=== PATIENT | male | born 1995 | race Hispanic/Latino ===

== ENCOUNTER 2018-09-09 21:16 | Emergency (ER) | payer OTHER ==
[2018-09-09] MEDS ORDERED: IBUPROFEN 600 MG TABLET ONE (21:54)
[2018-09-09] MEDS ORDERED: ONDANSETRON ODT 4 MG TAB ONE (21:54)
[2018-09-09 23:20] LABS: APPEARANCE,URINE Cloudy (CLEAR); BILIRUBIN,URINE Negative (NEGATIVE); COLOR,URINE Yellow (YELLOW); GLUCOSE, URINE (UA) Negative (NEGATIVE); KETONES,URINE Trace mg/dL (NEGATIVE); LEUKOCYTE ESTERASE ,URINE Negative (NEGATIVE); NITRATE,URINE Negative (NEGATIVE); OCCULT BLOOD,URINE Negative (NEGATIVE); PH,URINE 6.5 (5.0-8.0); PROTEIN,URINE Negative (NEGATIVE)
== END 2018-09-09 23:53 | disposition home or self-care (01) ==
LOC: EDH 21:16
DX: J10.1 Influenza due to other identified influenza virus with other respiratory manifestations (principal); R11.2 Nausea with vomiting, unspecified
CPT/HCPCS: 81003; 87804